=== PATIENT | female | born 1930 | race Caucasian/White ===

== ENCOUNTER 2020-08-23 11:06 | Emergency (ER) | payer OTHER ==
[~2020-08-23 11:06] MED LIST: 3IN1 COMMODE XX; AMLODIPINE BESYL5 MG PO; AMOXICILLIN500 MG PO; ATIVAN0.5 MG PO; DESYREL50 MG PO; HYDROCORTISONE30 G2 TOP; MICON-GUARD 2% TOP; MOBIC7.5 MG PO; NORCO 5-325 TA1 EACH PO; PANTOPRAZOLE SO40 MG PO; PREDNISONE 10MG10 MG PO; PREDNISONE 20MG20 MG PO; REQUIP0.25 MG PO; SILVASORB44.4 ML TOP; TAMSULOSIN HCL0.4 MG PO; ZOCOR20 MG PO; ZOLOFT100 MG PO
[2020-08-23 14:03] LABS: BASOPHIL 0.9 % (0-2); EOSINOPHIL 1.7 % (0-7); HCT 33.6 % (37.0-47.0); HGB 10.2 g/dl (12.5-16.0); LYMPHOCYTE 20.5 % (15-48); MCH 27.1 pg (25.0-31.0); MCHC 30.4 g/dL (32.0-36.0); MCV 89.1 fL (78.0-100.0); MONOCYTE 6.6 % (0-12); MPV 9.9 fL (6.0-9.5); NRBC 0; PLT 243 K/uL (150-400); RBC 3.77 M/uL (4.20-5.40); RDW 13.3 % (11.5-14.0); WBC 6.3 K/uL (4.0-10.5)
[2020-08-23 14:12] LABS: BILIRUBIN NEGATIVE (NEGATIVE); BLOOD NEGATIVE Ery/uL (NEGATIVE); CLARITY CLEAR (CLEAR); COLOR YELLOW (YELLOW); GLUCOSE (U) NORMAL (NORMAL); LEUKOCYTES NEGATIVE Leu/uL (NEGATIVE); NITRITE POSITIVE (NEGATIVE); PROTEIN NEGATIVE (NEGATIVE); UROBILINOGEN 0.2 mg/dL (0.2-1.0)
[2020-08-23 14:20] LABS: ALBUMIN 3.4 g/dL (3.4-5.0); BILIRUBIN - TOTAL 0.3 mg/dL (0.2-1.0); BUN/CREAT RATIO (CALC) 28.2 RATIO; CREATININE 0.71 mg/dL (0.51-0.95); GLOBULIN (CALCULATION) 3.2 g/dL; POTASSIUM 4.2 mmol/L (3.5-5.1); TOTAL PROTEIN 6.6 g/dL (6.4-8.2)
[2020-08-23 14:21] LABS: URINARY RBC RARE; URINARY WBC RARE
[2020-08-23 14:22] LABS: BACTERIA 4+
[2020-08-23] MEDS ORDERED: KEFLEX250 MG PO (14:50)
== END 2020-08-23 16:55 | disposition home or self-care (01) ==
LOC: FER 11:06
PROVIDERS: Internal Medicine
DX: S00.03XA Contusion of scalp, initial encounter (principal); N39.0 Urinary tract infection, site not specified; M40.209 Unspecified kyphosis, site unspecified; I10 Essential (primary) hypertension; E03.9 Hypothyroidism, unspecified; Z79.01 Long term (current) use of anticoagulants; W19.XXXA Unspecified fall, initial encounter; Y92.009 Unspecified place in unspecified non-institutional (private) residence as the place of occurrence of the external cause
CPT/HCPCS: 36415; 70450; 71101; 72125; 72128; 80053; 81001; 85025; 93005

== ENCOUNTER 2021-01-24 13:23 | Inpatient (IN) | payer OTHER ==
[~2021-01-24] VITALS: Ht 157.5 cm; Wt 52.7 kg
[~2021-01-24 13:23] MED LIST changes: +KEFLEX250 MG PO
[2021-01-24 15:34] LABS: ALBUMIN 2.6 g/dL (3.4-5.0); BILIRUBIN - TOTAL 0.4 mg/dL (0.2-1.0); BUN/CREAT RATIO (CALC) 44.1 RATIO; CREATININE 1.02 mg/dL (0.51-0.95); GLOBULIN (CALCULATION) 2.9 g/dL; POTASSIUM 4.5 mmol/L (3.5-5.1); TOTAL PROTEIN 5.5 g/dL (6.4-8.2)
[2021-01-24 15:40] LABS: BILIRUBIN NEGATIVE (NEGATIVE); BLOOD 3+ Ery/uL (NEGATIVE); CLARITY HAZY (CLEAR); COLOR YELLOW (YELLOW); GLUCOSE (U) NORMAL (NORMAL); LEUKOCYTES 2+ Leu/uL (NEGATIVE); NITRITE NEGATIVE (NEGATIVE); PROTEIN TRACE (LOW) mg/dL (NEGATIVE); SPECIFIC GRAVITY 1.025 (1.001-1.030); UROBILINOGEN 0.2 mg/dL (0.2-1.0); pH 5.5 (5.0-9.0)
[2021-01-24 15:44] LABS: BASOPHIL 0.1 % (0-2); EOSINOPHIL 0 % (0-7); HCT 13.3 % (37.0-47.0); MCH 22.4 pg (25.0-31.0); MCHC 27.1 g/dL (32.0-36.0); MCV 82.6 fL (78.0-100.0); MONOCYTE 5.9 % (0-12); MPV 10.5 fL (6.0-9.5); NRBC 0.5; PLT 363 K/uL (150-400); RBC 1.61 M/uL (4.20-5.40); RDW 16.5 % (11.5-14.0); WBC 13.2 K/uL (4.0-10.5)
[2021-01-24 15:48] LABS: URINARY WBC 20-50
[2021-01-24 15:49] LABS: AMORPHOUS URATES CRYSTALS MODERATE; BACTERIA 3+
[2021-01-24 15:51] LABS: HGB 3.6 g/dl (12.5-16.0)
[2021-01-24 16:10] LABS: CORONAVIRUS 2019 SARS-COV-2 NEGATIVE (NEGATIVE); INFLUENZA A NAA NEGATIVE (NEGATIVE)
[2021-01-24 16:15] LABS: HCT 12.9 % (37.0-47.0)
[2021-01-24 16:19] LABS: HGB 3.5 g/dL (12.5-16.0)
[2021-01-24 18:11] LABS: LACTIC ACID 4.9 mmol/L (0.4-1.9)
[2021-01-24 21:12] LABS: HCT 24.8 % (37.0-47.0)
[2021-01-24 21:14] LABS: HGB 7.6 g/dL (12.5-16.0)
[2021-01-24 21:31] LABS: IRON % SATURATION 2.9 %SAT (20-50)
[2021-01-25 06:22] LABS: BASOPHIL 0.1 % (0-2); EOSINOPHIL 0 % (0-7); HCT 23.7 % (37.0-47.0); LYMPHOCYTE 2.8 % (15-48); MCH 25.1 pg (25.0-31.0); MCHC 30.4 g/dL (32.0-36.0); MCV 82.6 fL (78.0-100.0); MONOCYTE 4.8 % (0-12); MPV 10.2 fL (6.0-9.5); NEUTROPHIL 91.1 % (41-80); NRBC 0.6; PLT 344 K/uL (150-400); RBC 2.87 M/uL (4.20-5.40); RDW 16.7 % (11.5-14.0); WBC 19.8 K/uL (4.0-10.5)
[2021-01-25 06:25] LABS: HGB 7.2 g/dl (12.5-16.0)
[2021-01-25 06:32] LABS: ALBUMIN 2.7 g/dL (3.4-5.0); BILIRUBIN - TOTAL 0.4 mg/dL (0.2-1.0); BUN/CREAT RATIO (CALC) 41.7 RATIO; CREATININE 1.15 mg/dL (0.51-0.95); POTASSIUM 3.4 mmol/L (3.5-5.1); TOTAL PROTEIN 5.7 g/dL (6.4-8.2)
--- NOTE | 2021-01-25 12:19 | NUR ---
CARVAJAL PLACED AT 1000, NO C/O OF PAIN, URINE OUTPUT 100 ML, UA SENT TO LAB
[2021-01-25 17:11] LABS: HGB 9.2 g/dL (12.5-16.0)
[2021-01-26 03:56] LABS: BASOPHIL 0 % (0-2); EOSINOPHIL 0 % (0-7); HGB 9.2 g/dl (12.5-16.0); LYMPHOCYTE 2.5 % (15-48); MCH 25.7 pg (25.0-31.0); MCHC 31.7 g/dL (32.0-36.0); MONOCYTE 3.5 % (0-12); NRBC 0.5; PLT 319 K/uL (150-400); RBC 3.58 M/uL (4.20-5.40); RDW 16.3 % (11.5-14.0); WBC 11.6 K/uL (4.0-10.5)
[2021-01-26 04:00] LABS: NEUTROPHIL 93.2 % (41-80)
[2021-01-26 04:17] LABS: ALBUMIN 2.6 g/dL (3.4-5.0); BILIRUBIN - TOTAL 0.5 mg/dL (0.2-1.0); BUN/CREAT RATIO (CALC) 38.5 RATIO; CREATININE 1.09 mg/dL (0.51-0.95); GLOBULIN (CALCULATION) 2.9 g/dL; MAGNESIUM 1.9 mg/dL (1.8-2.4); TOTAL PROTEIN 5.5 g/dL (6.4-8.2)
[2021-01-26 04:20] LABS: POTASSIUM 2.1 mmol/L (3.5-5.1)
[2021-01-27 04:59] LABS: BASOPHIL 0.1 % (0-2); EOSINOPHIL 0 % (0-7); HCT 29.2 % (37.0-47.0); HGB 8.8 g/dl (12.5-16.0); LYMPHOCYTE 5.1 % (15-48); MCHC 30.1 g/dL (32.0-36.0); MONOCYTE 5.7 % (0-12); NEUTROPHIL 88.5 % (41-80); NRBC 0.3; PLT 267 K/uL (150-400); RBC 3.52 M/uL (4.20-5.40); RDW 16.9 % (11.5-14.0)
[2021-01-27 05:09] LABS: INR 1.17 (0.9-1.2); PROTHROMBIN TIME 14.3 SECONDS (11.8-13.4)
[2021-01-27 05:21] LABS: ALBUMIN 2.4 g/dL (3.4-5.0); BILIRUBIN - TOTAL 0.5 mg/dL (0.2-1.0); BUN/CREAT RATIO (CALC) 48.3 RATIO; CREATININE 0.87 mg/dL (0.51-0.95); GLOBULIN (CALCULATION) 2.8 g/dL; MAGNESIUM 2.3 mg/dL (1.8-2.4); TOTAL PROTEIN 5.2 g/dL (6.4-8.2)
--- NOTE | 2021-01-27 14:54 | NUR ---
RN CONTACTED BY [facility] PER FAMILY REQUEST TO SEND PT THERE AFTER DISCHARGE FOR CARE. SPOKE WITH LACEY LOPEZ ABOUT GOALS AND PLANNED DISCAHRGE. FAX # IS [phone] PLEASE PUT ATTENTION LACEY LOPEZ. PHONE # IS [phone]. PLEASE CALL AT DISCAHRGE AND SEND INFORMATION. HISTORY AND PHYSICAL WAS ALREADY FAXED.
--- NOTE | 2021-01-27 16:43 | NUR ---
01/27/21 An assessment was conducted at bedside with Ms. Pham and her son, Jacquelyn Pham. Ms. Pham displayed confusion. Ms. Pham was living alone with caregivers 5 days per week, 5 hours per day. She has a rollator and rw. Vargas Pham reports that his brother, Jono Pham, has been in touch with [facility] for possible placement. - Jono Pham, , would like placement at [facility], [facility] or [facility].
[2021-01-28 03:41] LABS: BASOPHIL 0 % (0-2); EOSINOPHIL 0.5 % (0-7); HGB 8.4 g/dl (12.5-16.0); LYMPHOCYTE 9.4 % (15-48); MCH 25.1 pg (25.0-31.0); MCV 83.8 fL (78.0-100.0); MONOCYTE 9.2 % (0-12); NEUTROPHIL 80.4 % (41-80); NRBC 0.6; PLT 215 K/uL (150-400); RBC 3.34 M/uL (4.20-5.40); RDW 16.8 % (11.5-14.0); WBC 10.7 K/uL (4.0-10.5)
[2021-01-28 04:48] LABS: BUN/CREAT RATIO (CALC) 47.1 RATIO; CREATININE 0.7 mg/dL (0.51-0.95); MAGNESIUM 2.4 mg/dL (1.8-2.4); POTASSIUM 3.3 mmol/L (3.5-5.1)
[2021-01-28] MEDS ORDERED: SYNTHROID112 MCG PO (13:04)
[2021-01-29 05:11] LABS: BASOPHIL 0 % (0-2); EOSINOPHIL 0.6 % (0-7); HCT 30.2 % (37.0-47.0); HGB 9.1 g/dl (12.5-16.0); LYMPHOCYTE 10.3 % (15-48); MCH 25.6 pg (25.0-31.0); MCHC 30.1 g/dL (32.0-36.0); MCV 85.1 fL (78.0-100.0); MPV 10.7 fL (6.0-9.5); NEUTROPHIL 79.5 % (41-80); NRBC 0.2; PLT 228 K/uL (150-400); RBC 3.55 M/uL (4.20-5.40); RDW 16.8 % (11.5-14.0); WBC 11.7 K/uL (4.0-10.5)
[2021-01-29 05:54] LABS: BUN/CREAT RATIO (CALC) 34.9 RATIO; CREATININE 0.63 mg/dL (0.51-0.95); MAGNESIUM 2.2 mg/dL (1.8-2.4); POTASSIUM 4.2 mmol/L (3.5-5.1)
--- NOTE | 2021-01-29 10:11 | NUR ---
01/29/21 Clinicials have been referred to [facility].
[2021-01-30 06:12] LABS: BASOPHIL 0.1 % (0-2); EOSINOPHIL 2.6 % (0-7); HCT 29.2 % (37.0-47.0); HGB 8.6 g/dl (12.5-16.0); MCH 25.1 pg (25.0-31.0); MCHC 29.5 g/dL (32.0-36.0); MCV 85.1 fL (78.0-100.0); MONOCYTE 7.1 % (0-12); MPV 11.2 fL (6.0-9.5); NRBC 0; PLT 214 K/uL (150-400); RBC 3.43 M/uL (4.20-5.40); RDW 17.2 % (11.5-14.0); WBC 11.1 K/uL (4.0-10.5)
[2021-01-30 06:30] LABS: BUN/CREAT RATIO (CALC) 28.1 RATIO; CREATININE 0.64 mg/dL (0.51-0.95); POTASSIUM 3.7 mmol/L (3.5-5.1)
[2021-01-30] MEDS ORDERED: DIGITEK125 MCG PO (10:19)
[2021-01-30] MEDS ORDERED: PANTOPRAZOLE SO40 MG PO (10:19)
[2021-01-30] MEDS ORDERED: POLY-IRON150 MG PO (10:19)
[2021-01-30] MEDS ORDERED: LASIX20 MG PO (10:31)
[2021-01-30] MEDS ORDERED: POTASSIUM CHLO10 ME1 PO (10:31)
--- NOTE | 2021-01-30 10:33 | NUR ---
01/30/21 [facility] has received insurance authorization and will accept today per Desiree Rose, Admission Coordinator. Jono Pham, son, was informed. Patient meets criteris for EMS per MS. WILTON Reese. Report given to Mary Ann.
== END 2021-01-30 14:10 | DRG 871 ==
LOC: FER 13:23 → FMS 18:32 → FTCU 18:32 → FMS 01-29 14:18
PROVIDERS: Internal Medicine; Nurse Practitioner; Nurse Practitioner Family; ADMIT Internal Medicine
PROC: 30233N1 Transfusion of Nonautologous Red Blood Cells into Peripheral Vein, Percutaneous Approach (ICD-10-PCS; 2021-01-24)
PROC: 30233N1 Transfusion of Nonautologous Red Blood Cells into Peripheral Vein, Percutaneous Approach (ICD-10-PCS; principal; 2021-01-25)
PROC: 05HM33Z Insertion of Infusion Device into Right Internal Jugular Vein, Percutaneous Approach (ICD-10-PCS; 2021-01-25)
PROC: B543ZZA Ultrasonography of Right Jugular Veins, Guidance (ICD-10-PCS; 2021-01-25)
DX: A41.51 Sepsis due to Escherichia coli [E. coli] (principal); I21.A1 Myocardial infarction type 2; I50.43 Acute on chronic combined systolic (congestive) and diastolic (congestive) heart failure; G93.41 Metabolic encephalopathy; K72.00 Acute and subacute hepatic failure without coma; D62 Acute posthemorrhagic anemia; N30.80 Other cystitis without hematuria; Z20.822 Contact with and (suspected) exposure to COVID-19; I48.0 Paroxysmal atrial fibrillation; M35.3 Polymyalgia rheumatica; G47.00 Insomnia, unspecified; E78.5 Hyperlipidemia, unspecified; E03.9 Hypothyroidism, unspecified; F32.9 Major depressive disorder, single episode, unspecified; F41.9 Anxiety disorder, unspecified; M81.0 Age-related osteoporosis without current pathological fracture; K44.9 Diaphragmatic hernia without obstruction or gangrene; I51.7 Cardiomegaly; Z90.710 Acquired absence of both cervix and uterus; Z90.89 Acquired absence of other organs; Z98.41 Cataract extraction status, right eye; Z98.42 Cataract extraction status, left eye; Z98.890 Other specified postprocedural states; Z87.440 Personal history of urinary (tract) infections; Z86.711 Personal history of pulmonary embolism
CPT/HCPCS: 36415; 36430; 70450; 71045; 80048; 80053; 81001; 82728; 83540; 83550; 83605; 83735; 83880; 84132; 84484; 85014; 85018; 85025; 85610; 86850; 86900; 86901; 86922; 87076; 87088; 87186; 93005; 94010; 94760; 94762; 97163; 97166; 97530; 97530-GP; 97535; C9113; J0696; J1160; J1720; J1940; J2270; J2916; J3480; J7120; J7512; P9016; U0002